=== PATIENT | female | born 2000 | race Two or more races ===

== ENCOUNTER 2020-10-03 05:30 | Emergency (ER) | payer MEDICAID ==
[~2020-10-03] VITALS: Ht 154.9 cm; Wt 81.6 kg
[2020-10-03] MEDS ORDERED: IODIXANOL 320MG/ML 100ML BTL IV ONE (07:34)
[2020-10-03 08:02] LABS: Basophils # (auto) 0.1 10 ^3/uL (0-0.2); Eosinophils # (auto) 0.1 10 ^3/uL (0-0.8); Eosinophils % (auto) 0.4 % (0.0-7.0); Monocytes # (auto) 0.7 10 ^3/uL (0-1.3); Red Blood Cells 5.37 10^6/uL (4.0-5.20); White Blood Cell 14.6 10^3/uL (4.4-10.8)
[2020-10-03 08:03] LABS: Basophils % (auto) 0.5 % (0.0-2.0); Lymphocytes # (auto) 2.3 10 ^3/uL (0.4-5.4); Lymphocytes % (auto) 15.8 % (10.0-50.0); Mean Corpuscular Hgb Conc. 33.4 g/dL (32.0-36.0); Mean Corpuscular Volume 83.7 fL (80.0-100.0); Monocytes % (auto) 4.8 % (0.0-12.0); Neutrophils # (auto) 11.5 10 ^3/uL (1.6-8.6); Neutrophils % (auto) 78.5 % (37.0-80.0); Platelet Count (auto) 478 10^3/uL (140-450); Red Cell Distribution Width 13.4 % (11.8-14.3)
[2020-10-03 08:17] LABS: Calcium 9.2 mg/dL (8.5-10.1); Potassium 4.2 mmol/L (3.5-5.1)
[2020-10-03 08:20] LABS: BUN/Creatinine Ratio 12.7; Bilirubin, Total 0.4 mg/dL (0.2-1.0); Total Protein 9.2 g/dL (6.4-8.2)
[2020-10-03] MEDS ORDERED: CLINDAMYCIN 600MG IV 50 ML IV ONE (09:45)
[2020-10-03] MEDS ORDERED: KETOROLAC TROMETH 30 MG/ML 1ML VIAL IV ONE (09:45)
[2020-10-03 11:20] VITALS: BP 126/86
== END 2020-10-03 11:27 | disposition home or self-care (01) ==
LOC: ER 05:30
DX: L02.11 Cutaneous abscess of neck (principal)
CPT/HCPCS: 36415; 70491; 76536; 80053; 84443; 85025; 96365; 96375; 99285; J1885; J3490; Q9967; 96374